=== PATIENT | female | born 1985 | race Hispanic/Latino ===

== ENCOUNTER 2017-04-11 19:59 | Emergency (ER) | payer BC ==
[~2017-04-11] VITALS: Ht 154.9 cm; Wt 77.1 kg
[2017-04-11] MEDS ORDERED: ASPIRIN 325 MG TAB PO ONE (20:15)
--- NOTE | 2017-04-11 20:18 | History and Physical ---
No dictation, length 00:01. Job#: [id number]
--- NOTE | 2017-04-11 20:32 | Progress Note ---
DATE: NO DICTATION (00:02) Job#: [id number]
[2017-04-11 22:35] VITALS: BP 118/72
== END 2017-04-11 22:10 | disposition home or self-care (01) ==
LOC: FSED 20:18
DX: R07.89 Other chest pain (principal); R00.2 Palpitations; R42 Dizziness and giddiness
CPT/HCPCS: 99283

== ENCOUNTER 2020-03-26 13:49 | Emergency (ER) | payer BC, OTHER ==
[~2020-03-26] VITALS: Ht 154.9 cm; Wt 80.1 kg
[2020-03-26] MEDS ORDERED: EMGALITY S120 MG/1 M (14:53)
[2020-03-26] MEDS ORDERED: CEPHALEXIN500 MG PO (15:09)
[2020-03-26] MEDS ORDERED: MEDROL4 MG PO (15:10)
== END 2020-03-26 15:29 | disposition home or self-care (01) ==
LOC: FSED 14:48
DX: M79.622 Pain in left upper arm (principal); M79.89 Other specified soft tissue disorders; T50.Z95A Adverse effect of other vaccines and biological substances, initial encounter
CPT/HCPCS: 99282

== ENCOUNTER 2021-07-27 17:19 | Emergency (ER) | payer OTHER ==
[~2021-07-27] VITALS: Ht 154.9 cm; Wt 79.8 kg
[~2021-07-27 17:19] MED LIST: CEPHALEXIN500 MG PO; EMGALITY S120 MG/1 M; MEDROL4 MG PO
[2021-07-27] MEDS ORDERED: KETOROLAC TROMETHAMINE 60 MG/2 ML VIAL IM STA (17:44)
[2021-07-27] MEDS ORDERED: ONDANSETRON HCL 4 MG ORAL DISINTEGRATING TAB PO STA (17:44)
[2021-07-27 18:13] LABS: CLARITY,URINE SL CLOUDY (CLEAR); COLOR,URINE YELLOW (YELLOW); KETONES,URINE NEGATIVE (NEGATIVE); LEUKOCYTE ESTERASE ,URINE NEGATIVE (NEGATIVE); NITRITE,URINE NEGATIVE (NEGATIVE); PROTEIN,URINE DIPSTICK NEGATIVE (NEGATIVE); URINE UROBILINOGEN 0.2 mg/dL (0.2 - 1)
[2021-07-27 18:26] LABS: BACTERIA,URINE MANY /HPF; EPITHELIAL CELLS,URINE FEW /LPF
[2021-07-27] MEDS ORDERED: ULTRAM 50MG50 MG PO (22:10)
[2021-07-27] MEDS ORDERED: CIPRO500 MG PO (22:10)
== END 2021-07-27 22:14 | disposition home or self-care (01) ==
LOC: ER 17:44
DX: R11.2 Nausea with vomiting, unspecified (principal); N39.0 Urinary tract infection, site not specified; N83.202 Unspecified ovarian cyst, left side; M54.50 Low back pain, unspecified
CPT/HCPCS: 74176; 76830; 81001; 81025; 93976; 99283; J1885; Q0162